=== PATIENT | male | born 1975 | race Hispanic/Latino ===

== ENCOUNTER 2017-06-05 06:12 | Day surgery (SDC) | payer BC ==
[~2017-06-05] VITALS: Ht 172.7 cm; Wt 84.5 kg
[~2017-06-05 06:12] MED LIST: OMEP20TA25 PO; SODIUM CHLORIDE 0.9% 1000ML 1,000 ML IV ONE
[2017-06-05 06:45] VITALS: BP 137/89
[2017-06-05] MEDS ORDERED: FENTANYL CITRATE PF 50 MCG/1 ML 2ML VIAL ONE (07:18)
[2017-06-05] MEDS ORDERED: GLYCOPYRROLATE 0.2 MG/ML 5 ML VIAL ONE (07:19)
[2017-06-05] MEDS ORDERED: PROPOFOL 10 MG/ML 20ML VIAL IV ONE (07:19)
[2017-06-05] MEDS ORDERED: LIDOCAINE HCL 2% 20ML ONE (07:19)
[2017-06-05 07:40] VITALS: BP 97/54
== END 2017-06-05 08:12 | disposition home or self-care (01) ==
LOC: DAH 06:12 → ENDO 06:12
PROVIDERS: ATTEND Internal Medicine Gastroenterology
DX: K31.84 Gastroparesis (principal); Z79.899 Other long term (current) drug therapy; Z98.890 Other specified postprocedural states; Z90.49 Acquired absence of other specified parts of digestive tract; Z83.3 Family history of diabetes mellitus
CPT/HCPCS: 43235; A4606; J2704; J3010; J3490 ×2; J7030

== ENCOUNTER → 2017-06-29 | Outpatient (CLI) | payer BC ==
[~2017-06-29] MED LIST changes: -SODIUM CHLORIDE 0.9% 1000ML 1,000 ML IV ONE
== END | disposition home or self-care (01) ==
LOC: RAH 12:01
PROVIDERS: ATTEND Internal Medicine Gastroenterology
DX: K30 Functional dyspepsia (principal)
CPT/HCPCS: 78264; A9541